=== PATIENT | male | born 1995 | race Caucasian/White ===

== ENCOUNTER 2022-08-10 03:35 | Emergency (ER) | payer OTHER ==
[~2022-08-10] VITALS: Ht 177.8 cm; Wt 96.0 kg
[2022-08-10 04:32] VITALS: BP 139/95
[2022-08-10] MEDS ORDERED: BACITRACIN ZINC OINT UDPKT TOP ONE (05:45)
[2022-08-10] MEDS ORDERED: IBUP-2028 MT (05:58)
[2022-08-10] MEDS ORDERED: BO1 TP (05:58)
[2022-08-10] MEDS ORDERED: TOPUD PO (05:58)
== END 2022-08-10 07:09 | disposition home or self-care (01) ==
LOC: ER 03:35
DX: S61.411A Laceration without foreign body of right hand, initial encounter (principal); X58.XXXA Exposure to other specified factors, initial encounter; Y93.89 Activity, other specified; Y92.89 Other specified places as the place of occurrence of the external cause; Y99.8 Other external cause status; Z87.891 Personal history of nicotine dependence
CPT/HCPCS: 73130; 99283; Z7610

== ENCOUNTER 2023-09-01 19:57 | Emergency (ER) | payer MEDICAID ==
[~2023-09-01] VITALS: Ht 172.7 cm; Wt 91.0 kg
[~2023-09-01 19:57] MED LIST: BO1 TP; IBUP-2028 MT; TOPUD PO
[2023-09-01 20:03] VITALS: BP 125/88; PULSE 125; RESP 18; TEMP 98.6; O2SAT 98
[2023-09-01] MEDS ORDERED: SODIUM CHLORIDE 0.9% 1,000 ML IV ONE (20:45)
== END 2023-09-01 21:53 | disposition left against medical advice (07) ==
LOC: ER 19:57
DX: F10.129 Alcohol abuse with intoxication, unspecified (principal); Y90.9 Presence of alcohol in blood, level not specified
CPT/HCPCS: 99283; J7030